=== PATIENT | female | born 1940 | race Caucasian/White ===

== ENCOUNTER 2018-01-15 15:54 | Emergency (ER) | payer OTHER ==
[2018-01-15 16:13] VITALS: BP 172/92; PULSE 92; RESP 18; TEMP 98.4; O2SAT 99
--- NOTE | 2018-01-15 16:14 | C.PDOC ---
History Of Present Illness 77 year old female presents to the ER after suffering a left arm injury one week ago, s/p trip and fall onto his left upper arm. Patient is complaining of persistent pain, swelling, and bruising that is now tracking down the arm. Pain is worse with light touch and movement. Denies weakness, paresthesia, or use of anticoagulants. L ARM INJURY 1 WEEK AGO. S/P TRIP AND FALL ONTO L UPPER ARM, PERSIST PAIN SWELL AND BRUISING NOW TRACKING DOWN ARM. PAIN WORSE W LIGHT TOUCH, MOVEMENT. DENIES ASSOC WEAK, PARESTHESIA. DENIES ANTICOAG USE. EXAM NAD NONTOXIC EXT LUE +BRUISING LUE/FOREARM. GEN TEND HUMERUS . NO GROSS DEFORM. NO EDEMA. LIMITED ROM L SHOULDER DUE TO PAIN. INT/EXT ROTATION WO DIFF SKIN INTACT NEURO INTACT REMAINDER NEG Time Seen by Provider: 01/15/18 16:10 Chief Complaint (Nursing): Upper Extremity Problem/Injury History Per: Patient History/Exam Limitations: no limitations Onset/Duration Of Symptoms: Days Current Symptoms Are (Timing): Still Present Exacerbating Factor(s): Movement, Other (Light touch) Recent travel outside of the [place]: No Past Medical History Reviewed: Historical Data, Nursing Documentation, Vital Signs Vital Signs: Last Vital Signs Temp 98.4 F 01/15/18 16:04 Pulse 92 H 01/15/18 16:04 Resp 18 01/15/18 16:04 BP 172/92 H 01/15/18 16:04 Pulse Ox 99 01/15/18 17:19 - Medical History PMH: Parkinson's Disease Family History: States: Unknown Family Hx - Social History Hx Tobacco Use: No Hx Alcohol Use: No Hx Substance Use: No - Immunization History Hx Tetanus Toxoid Vaccination: No Hx Influenza Vaccination: No Hx Pneumococcal Vaccination: No Review Of Systems Except As Marked, All Systems Reviewed And Found Negative. Musculoskeletal: Positive for: Arm Pain Neurological: Negative for: Weakness, Numbness Physical Exam - Physical Exam Appears: Non-toxic, No Acute Distress Skin: Normal Color, Warm, Dry Head: Atraumatic, Normacephalic Eye(s): bilateral: Normal Inspection Extremity: Capillary Refill (<2 seconds), Other (EXT LUE +BRUISING LUE/FOREARM. GEN TEND HUMERUS . NO GROSS DEFORM. NO EDEMA. LIMITED ROM L SHOULDER DUE TO PAIN. INT/EXT ROTATION WO DIFF) Pulses: Left Radial: Normal, Right Radial: Normal Neurological/Psych: Oriented x3, Normal Speech, Normal Motor, Normal Sensation ED Course And Treatment O2 Sat by Pulse Oximetry: 99 (Room air) Pulse Ox Interpretation: Normal - Other Rad L SHOULDER X-Ray: Interpreted by Me ( HUMERAL HEAD FX) L HUMERUS X-Ray: Interpreted by Me ( HUMERAL HEAD FX) L ELBOW X-Ray: Interpreted by Me Disposition Counseled Patient/Family Regarding: Studies Performed, Diagnosis, Need For Followup - Disposition Referrals: [facility] [Outside] [facility] [Outside] Disposition: HOME/ ROUTINE Disposition Time: 17:02 Condition: GOOD Instructions: Shoulder Fracture (DC) Forms: [employer] ([place]ayan) - Clinical Impression Clinical Impression: Humeral head fracture - Scribe Statement The provider has reviewed the documentation as recorded by the Scribe Nirmal Lo All medical record entries made by the Scribe were at my direction and personally dictated by me. I have reviewed the chart and agree that the record accurately reflects my personal performance of the history, physical exam, medical decision making, and the department course for this patient. I have also personally directed, reviewed, and agree with the discharge instructions and disposition. Orthopedic Care Application Of:: Sling
--- NOTE | 2018-01-15 18:35 | RAD ---
PROCEDURE: Radiographs of the Left Shoulder HISTORY: TRAUMA COMPARISON: No prior. FINDINGS: BONES: Acute fracture with avulsion of the greater tuberosity. The fracture contains a component of impaction and comminution. There is also an intra-articular component to the fracture. JOINTS: Preserved glenohumeral relationship. Mild acromioclavicular degenerative change. SOFT TISSUES: Soft tissue swelling attests to the acuity of the fracture. OTHER FINDINGS: None. IMPRESSION: Acute, comminuted fracture humeral head. Preservation of glenohumeral relationship.
--- NOTE | 2018-01-15 18:36 | RAD ---
PROCEDURE: Radiographs of the left elbow. HISTORY: TRAUMA COMPARISON: No prior. FINDINGS: BONES: Normal. No fracture. JOINTS: Normal. No osteoarthritis. SOFT TISSUES: Normal. JOINT EFFUSION: None. OTHER FINDINGS: None IMPRESSION: No acute findings related to/accounting for the clinical presentation. Concordant results with the preliminary interpretation rendered by the emergency department physician procedure.
--- NOTE | 2018-01-15 18:36 | RAD ---
PROCEDURE: Radiographs of the left humerus. HISTORY: TRAUMA COMPARISON: January 15, 2018. FINDINGS: BONES: Acute, impacted fracture proximal left humerus with an intra-articular component. There is preservation glenohumeral relationship. No distal humeral abnormalities identified. SOFT TISSUES: Soft tissue swelling attests to the acuity of the fracture. OTHER FINDINGS: None. IMPRESSION: Acute fracture proximal left humerus. No additional abnormalities detected. Concordant results with the preliminary interpretation rendered by the emergency department physician procedure.
== END 2018-01-15 17:18 | disposition home or self-care (01) ==
LOC: C.ER 15:54
DX: S42.292A Other displaced fracture of upper end of left humerus, initial encounter for closed fracture (principal); W01.0XXA Fall on same level from slipping, tripping and stumbling without subsequent striking against object, initial encounter